=== PATIENT | female | born 1980 | race Caucasian/White ===

== ENCOUNTER 2020-11-03 22:12 | Emergency (ER) | payer OTHER, SELFPAY ==
[2020-11-03 22:16] VITALS: BP 139/88; PULSE 81; RESP 16; TEMP 36.6; O2SAT 98; BMI 28.3
--- NOTE | 2020-11-03 23:29 | XR_ITS ---
EXAMINATION: XR MANDIBLE CLINICAL INFORMATION: Hit with bowling ball. Low suspicion of fracture at the left TMJ area. COMPARISON: None TECHNIQUE: 4 views of the mandible were obtained. FINDINGS: There is no fracture seen. The temporomandibular joints are well aligned. The visualized paranasal sinuses are aerated. XR/XR mandible <4V IMPRESSION: No fracture or malalignment.
--- NOTE | 2020-11-03 23:32 | ED_ITS ---
HPI - Head Injury General Chief complaint: Trauma Stated complaint: jaw lac Time Seen by Provider: 11/03/20 23:22 Source: patient Mode of arrival: ambulatory Limitations: no limitations History of Present Illness HPI Narrative: Patient comes to the emergency room for a laceration in her chin. Patient states earlier this evening she was in a bowling [place] with her [place]. Patient states that her brother was pulling, he moved the hand and the ball backwards before shooting, patient's brother accidentally hit the patient in the chin. Patient complaining of a chipped tooth in the front and 1 molar and the laceration. Patient states she did not lose consciousness, she is not on blood thinners. Patient complaining of localized pain in her chin. MD Complaint: head injury Related Data Allergies Allergy/AdvReac Type Severity Reaction Status Date / Time No Known Allergies Allergy Verified 11/03/20 22:15 [No Known Allergies*] Review of Systems Review of Systems: Constitutional : No Weight loss, No Fever, No Chills, No Night Sweats, No Fatigue, No Malaise ENT/Mouth : No Hearing loss, No Ear Pain, No Nasal Congestion, No Sinus Pain, No Hoarseness, No sore throat, No Rhinorrhea, No Swallowing Difficulty. Mild TMJ pain on the left side. Eyes: No Eye Pain, No Swelling, No Redness, No Foreign Body, No Discharge, No Vision Changes Cardiovascular : No Chest Pain, No SOB, No Dyspnea on Exertion, No Orthopnea, No Edema, No Palpitations Respiratory : No Cough, No Sputum, No Wheezing, No Smoke Exposure, No Dyspnea Gastrointestinal : No Nausea, No Vomiting, No Diarrhea, No Constipation, No abdominal Pain, No Hematochezia, No Melena Genitourinary : no irregular bleeding, No Dysuria, No Urinary Frequency, No Hematuria, No Urinary Incontinence, No Urgency, No Flank Pain, No Urinary Flow Changes, No Hesitancy Musculoskeletal : No joint pain, No Myalgias, No Joint Swelling Skin : Laceration in the chin Neuro : No Weakness, No Numbness, No Paresthesias, No Loss of Consciousness, No Dizziness, No Headache Psych : No Anxiety/Panic, No Depression, No SI/HI/AH/VH, No Social Issues, Heme/Lymph: No Bruising, No Bleeding,No Lymphadenopathy Endocrine : No Polyuria, No Polydipsia, No Temperature Intolerance [facility] Past Medical History Medical History (Updated 11/04/20 @ 00:49 by Judit Unger MD) No known health problems Social History Social History Smoked in Last 30 Days: No Use of substances other than those prescribed or required for medical reasons: No Advance Directives: No Advance Directives Information Provided: No Physical Exam Vital Signs: Vital Signs: Last Vital Signs Temp 97.8 F 11/03/20 22:16 Pulse 81 11/03/20 22:16 Resp 16 11/03/20 22:16 BP 139/88 11/03/20 22:16 Pulse Ox 98 11/03/20 22:16 Body Mass Index 28.3 Course Course Course Narrative: I discussed with the patient the x-rays, no acute fracture. Patient received 4 stitches with primary got in the inner layer, the wound itself was closed with 7 stitches. Patient will follow-up with her dentist tomorrow, to address a chipped tooth and molar Procedures Laceration Laceration 1: Site: face Size (cm): 2 Description: linear Local Anesthetic: lidocaine 2% Amount of anesthesia used (mL): 7 Skin layer closed with: nylon Size (cm): 6-0 Number of sutures: 7 Technique: simple, interrupted Subcutaneous layer closed with: chromic gut Size: 4-0 Number of sutures: 4 Technique: simple, interrupted MDM - Head Injury Imaging Data Mandibular x-ray: Radiologist's impression: There is no fracture seen. The temporomandibular joints are well aligned. The visualized paranasal sinuses are aerated. XR/XR mandible <4V IMPRESSION: No fracture or malalignment. Discharge Plan Discharge Clinical Impression: Laceration, Contusion Patient Disposition: Home, Self-Care Instructions: Care For Your Stitches (ED) Additional Instructions: If you see any signs of infection such as redness, pus drainage, fever, any new concerns, please return to the emergency room. For pain control you may alternate Tylenol and ibuprofen. Your stitches need to be removed in 7-10 days. You may go to her primary care physician, urgent care, or return to the emergency room. Please call your dentist tomorrow
--- NOTE | 2020-11-04 01:00 | PC.NURSE ---
LAC TO CHIN CLEANED AND SUTURED PER DR. MCDUFFIE.
[2020-11-04] MEDS: Lidocaine HCl 2 % MPF 5 ML VIAL 10 ML INFILTRATI (01:02)
== END 2020-11-04 01:02 | disposition home or self-care (01) ==
PROVIDERS: Emergency Provider Emergency Medicine; PCP Family Medicine
DX: S01.81XA Laceration without foreign body of other part of head, initial encounter (principal); S02.5XXA Fracture of tooth (traumatic), initial encounter for closed fracture; Y29.XXXA Contact with blunt object, undetermined intent, initial encounter; Y93.54 Activity, bowling; Y92.9 Unspecified place or not applicable; Y99.8 Other external cause status
CPT/HCPCS: 12011; 70100; 99284